=== PATIENT | female | born 1990 | race Two or more races ===

== ENCOUNTER 2022-02-10 08:38 | Inpatient (IN) | payer OTHER ==
[~2022-02-10] VITALS: Ht 165.1 cm; Wt 77.1 kg
[~2022-02-10 08:38] MED LIST: AZIT250T13; PANT20TA2
--- NOTE | 2022-02-10 08:38 | NUR ---
[id number] FRM HOME, C/O DIFFUSE ABD PAIN SINCE 299. PAIN IS 10/10 ON PAIN SCALE. VITALS ARE WITHIN NORMAL LIMITS. NO RESP DISTRESS NOTED.
--- NOTE | 2022-02-10 08:40 | NUR ---
URINE COLLECTED AND SENT
[2022-02-10] MEDS ORDERED: MORPHINE SULFATE INJ 2 MG/ML DISP.SYRIN IV ONE (09:00)
[2022-02-10] MEDS ORDERED: IV NS 0.9% 1,000 ML BAG IV ONE (09:00)
[2022-02-10] MEDS ORDERED: ONDANSETRON HCL/PF 4 MG/2 ML VIAL IVP ONE (09:00)
[2022-02-10 09:18] LABS: BASOPHILS % (AUTO) 0.3 % (0.0-2.0); EOSINOPHILS % (AUTO) 0.2 % (0.0-6.0); HEMATOCRIT 43 % (33-45); HEMOGLOBIN 14.3 g/dL (11.5-14.8); LYMPHOCYTES % (AUTO) 7.3 % (20.0-44.0); MEAN CORPUSCULAR HGB CONC 34 g/dl (31.0-36.0); MEAN CORPUSCULAR VOLUME 87 fL (82-100); MONOCYTES # (AUTO) 0.6 K/uL (0.1-1.30); MONOCYTES % (AUTO) 4.2 % (2.0-12.0); NEUTROPHILS # (AUTO) 11.9 K/uL (1.8-8.9); PLATELET COUNT (AUTO) 207 K/uL (150-450); RED BLOOD CELL COUNT(AUTO) 4.93 MIL/uL (4.0-5.2); WHITE BLOOD COUNT (AUTO) 13.5 K/uL (4.3-11.0)
[2022-02-10] MEDS ORDERED: ONDANSETRON HCL/PF 4 MG/2 ML VIAL ONE ×2 (09:24→13:08)
[2022-02-10] MEDS ORDERED: MORPHINE SULFATE INJ 4 MG/ML DISP.SYRIN ONE ×2 (09:25→13:08)
[2022-02-10 09:29] LABS: CALCIUM, SERUM 9.3 mg/dL (8.5-10.1); CREATININE 0.8 mg/dL (0.6-1.3); POTASSIUM 3.4 mmol/L (3.5-5.1)
[2022-02-10 09:32] LABS: BILIRUBIN,URINE NEGATIVE (NEGATIVE); COLOR,URINE YELLOW (YELLOW); LEUKOCYTE ESTERASE ,URINE TRACE (NEGATIVE); NITRITE, URINE NEGATIVE (NEGATIVE); PH,URINE 7.5 (5.0-8.0); PROTEIN,URINE TRACE mg/dl (NEGATIVE); UGLUCOSE NEGATIVE (NEGATIVE)
[2022-02-10 09:35] LABS: ALBUMIN 3.8 g/dL (3.4-5.0); BILIRUBIN,DIRECT 0.2 mg/dL (0.0-0.2); BILIRUBIN,TOTAL 1.2 mg/dL (0.2-1.0); TOTAL PROTEIN, SERUM 7.6 g/dL (6.4-8.2)
[2022-02-10 09:57] LABS: BACTERIA,URINE 2+ /HPF (None Seen); RBC,URINE NONE SEEN /HPF (0-2); WBC,URINE NONE SEEN /HPF (0-3)
[2022-02-10] MEDS ORDERED: PIPERACILLIN /TAZOBACTAM 3.375 G in IV D5W 50 ML IV ONE (11:00)
[2022-02-10] MEDS ORDERED: LEVO1TAB20 PO (11:09)
--- NOTE | 2022-02-10 11:11 | NUR ---
MOVE SHEET SUBMITTED.
[2022-02-10] MEDS ORDERED: PIPERACILLIN /TAZOBACTAM 3.375 G VIAL IV ONE (11:17)
--- NOTE | 2022-02-10 11:28 | NUR ---
RAPID COVID TEST DONE AND SENT TO LAB
--- NOTE | 2022-02-10 12:00 | NUR ---
LAURI UI [employer] WE[employer] DEVELOPER [phone] PER CM, SHE'LL LOOK FOR BED AVAILABILITY AND MD WILL CALL FOR PEER TO PEER.
--- NOTE | 2022-02-10 12:21 | NUR ---
CHEYANNE HANDY WORKER GAVE AUTHORIZATION TO ADMIT PATIENT
--- NOTE | 2022-02-10 13:13 | NUR ---
GOT BED 307-1
[2022-02-10] MEDS ORDERED: MORPHINE SULFATE INJ 4 MG/ML DISP.SYRIN IV PRN (13:30)
[2022-02-10] MEDS ORDERED: MORPHINE SULFATE INJ 4 MG/ML DISP.SYRIN IV ONE (13:30)
[2022-02-10] MEDS ORDERED: ONDANSETRON HCL/PF - ER 4 MG/2 ML VIAL IV ONE (13:30)
[2022-02-10] MEDS ORDERED: HYDROMORPHONE MDV 0.5 MG in IV D5W 50 ML IV PRN (14:00)
[2022-02-10] MEDS ORDERED: ACETAMINOPHEN 325 MG TABLET PO PRN (14:00)
[2022-02-10] MEDS ORDERED: HYDROMORPHONE 1 MG/1 ML DISP.SYRIN IV PRN (14:00)
[2022-02-10] MEDS ORDERED: HYDROCODONE/APAP 5/325MG TABLET PO PRN (14:00)
[2022-02-10] MEDS ORDERED: ONDANSETRON HCL/PF 4 MG/2 ML VIAL IV PRN (14:00)
[2022-02-10] MEDS ORDERED: POTASSIUM CHLORIDE 10 MEQ/50 ML PREMIXED IVPB FOR PERIPHERAL LINE IV ONE (14:00)
--- NOTE | 2022-02-10 14:25 | NUR ---
REPORT GIVEN TO GURMEET FOR SURY
--- NOTE | 2022-02-10 14:30 | NUR ---
PATIENT ADMITTED FROM ER WITH NICOLE, ADMIT DX IS APPENDICITIS REPORTED BY WANDER LARA. PATIENT AO X 4, IN NO ACUTE DISTRESS OBSERVED, SKIN IS WARM TO TOUCH, KEEP CLEAN/DRY. RESPIRATORY EVEN AND UNLABORED IN ROOM AIR. STARTED ADMINISTERED POTASSIUM VIA IV ON RIGHT AC 20 G IV LINE. CALL LIGHT WITHIN REACH, WILL CONTINUE TO MONITOR.
--- NOTE | 2022-02-10 14:42 | NUR ---
PT TRANSPORTED TO [facility] FLOOR
[2022-02-10] MEDS: Potassium Chloride 20 MEQ in IV D5/ 0.9% NACL 1,000 ML IV SCH ×2 (15:39→23:53)
[2022-02-10] MEDS ORDERED: MORPHINE SULFATE INJ 2 MG/ML DISP.SYRIN IV PRN (16:30)
--- NOTE | 2022-02-10 16:40 | NUR ---
PATIENT REFUSING DILAUDID AND REQUESTING MORPHINE INSTEAD. DR. PETERS ORDERED MORPHINE MG Q 6 H PRN. WILL CONTINUE TO MONITOR.
--- NOTE | 2022-02-10 18:00 | NUR ---
RN CLOSING NOTE PATIENT IN BED RESTING. IN NO ACUTE DISTRESS NOTED. RESPIRATORY EVEN AND UNLABORED ON ROOM AIR. SKIN IS WARM TO TOUCH, KEEP CLEAN/DRY, INTACT IV LINE. KEPT ELEVATED HOB FOR ENSURE AIRWAY AND ASPIRATION PRECAUTION. BED IN LOWEST POSITION AND LOCKED. BED ALARM IS ON AT ALL THE TIMES. PATIENT REQUESTED TO TAKE ORAL CONTRACEPTIVES AND DR. PETERS ACCEPTED. CONTINUE TO NPO FOR PROCEDURE. ALL SAFETY MEASURED IN PLACED. CALL LIGHT WITHIN REACH, WILL ENDORSED TO NEXT SHIFT.
[2022-02-10] MEDS: PIPERACILLIN /TAZOBACTAM 3.375 G in IV D5W 50 ML IV SCH ×2 (18:18→23:34)
[2022-02-10 20:00] VITALS: BP 106/39
--- NOTE | 2022-02-10 20:00 | NUR ---
RECEIVED PATIENT IN BED, ALERT/ORIENTED X4, ROOM AIR, DULL ACHE IN RIGHT SIDE OF ABDOMEN, NPO EXCEPT MEDS, EXPLAINED TO PATIENT BEING NPO AND POSSIBLE SURGERY IN AM. INDEPENDENT WITH ADLS, AT THE BEDSIDE. WILL CONTINUE TO MONITOR.
[2022-02-10 21:25] VITALS: BP 106/39
[2022-02-10] MEDS ORDERED: ZOLPIDEM TARTRATE 5 MG TABLET PO PRN (22:00)
[2022-02-11] VITALS (10 sets, daily range): BP systolic 93–130; BP diastolic 41–85
[2022-02-11 06:14] LABS: BASOPHILS % (AUTO) 0.1 % (0.0-2.0); EOSINOPHILS % (AUTO) 0.2 % (0.0-6.0); HEMATOCRIT 37 % (33-45); HEMOGLOBIN 12.8 g/dL (11.5-14.8); LYMPHOCYTES # (AUTO) 0.5 K/uL (0.8-4.8); MEAN CORPUSCULAR HGB CONC 34 g/dl (31.0-36.0); MEAN CORPUSCULAR VOLUME 87 fL (82-100); MONOCYTES # (AUTO) 0.4 K/uL (0.1-1.30); MONOCYTES % (AUTO) 6.3 % (2.0-12.0); NEUTROPHILS # (AUTO) 4.7 K/uL (1.8-8.9); NEUTROPHILS % (AUTO) 84.4 % (43.0-81.0); PLATELET COUNT (AUTO) 158 K/uL (150-450); RED BLOOD CELL COUNT(AUTO) 4.26 MIL/uL (4.0-5.2); WHITE BLOOD COUNT (AUTO) 5.6 K/uL (4.3-11.0)
[2022-02-11] MEDS: PIPERACILLIN /TAZOBACTAM 3.375 G in IV D5W 50 ML IV SCH ×3 (06:19→17:32)
[2022-02-11 06:29] LABS: CALCIUM, SERUM 8.5 mg/dL (8.5-10.1); CREATININE 0.8 mg/dL (0.6-1.3); MAGNESIUM 1.8 mg/dL (1.8-2.4); POTASSIUM 3.4 mmol/L (3.5-5.1)
--- NOTE | 2022-02-11 07:30 | NUR ---
APPENDICITIS, DULL ACHE TO RIGHT LOWER ABDOMEN, FEVER OF 101.3F, GIVEN TYLENOL AND COOLING MEASURES, TEMP WENT DOWN TO 99.5. NPO EXCEPT MEDS, D5NS + KCL 20 MEQ AT 100 ML/HR, ZOSYN Q6HRS, UA +2 BACTERIA. LAPAROSCOPIC OPEN VS APPENDECTOMY BY DR. JESUS VÁZQUEZ, POST OP LABS TAKEN TODAY, CHECKLIST, CONSENT FOR SURGERY AND BLOOD IN CHART.
--- NOTE | 2022-02-11 07:35 | NUR ---
MS RN OPENING NOTES RECEIVED PATIENT IN BED, AOX4, ANXIOUS ABOUT HER SURGERY WANTED TO SPEAK TO THE SURGEON, REASSURED PATIENT THAT IT IS SCHEDULED AT 1000 AND THE MD WILL DISCUSS THE PROCEDURE TO HER, PATIENT UNDERSTOOD. PATIENT IS AFEBRILE AND DENIED PAIN AT THIS TIME, PATIENT IS ORIENTED TO THE ROOM, NOT IS ANY RESPIRATORY DISTRESS, HAS RAC G#20 WITH D5NS + 20 MEQ KCL RUNNING AT 100 ML/HR. SKIN IS INTACT, SAFETY MEASURES IN PLACE: BED AT LOWEST POSITION, 2 SIDERAILS UP, LOCKED, WITH TRAY TABLE AND CALL LIGHT WITHIN REACH, WILL CONTINUE TO MONITOR DURING MY SHIFT.
[2022-02-11] MEDS ORDERED: FENTANYL PF 250MCG/5ML AMPUL ONE (09:08)
[2022-02-11] MEDS ORDERED: HYDROMORPHONE INJ 2 MG/ML DISP.SYRIN ONE (09:08)
[2022-02-11] MEDS ORDERED: FAMOTIDINE/PF INJ 20 MG/2 ML VIAL IV ONE (09:09)
[2022-02-11] MEDS ORDERED: MIDAZOLAM HCL 2 MG/2ML VIAL ONE (09:09)
[2022-02-11] MEDS ORDERED: ROCURONIUM BROMIDE 50 MG/5 ML ONE (09:10)
[2022-02-11] MEDS ORDERED: ANESTHESIA TRAY IN PYXIS 1 EA TRAY MC ONE (09:19)
[2022-02-11] MEDS ORDERED: BUPIVACAINE MPF 0.5% W/EPI INJ 30 ML VIAL ONE (09:20)
[2022-02-11] MEDS ORDERED: LIDOCAINE HCL/PF 1% 30 ML SDV ONE (09:20)
--- NOTE | 2022-02-11 09:31 | NUR ---
RN NOTES PATIENT HAS BEEN TAKEN TO THE OR BY JANE LI AND JANE COOLEY WITH HER 1200 DOSE OF ZOSYN AT 0928. PREOP CHECKLIST HAS BEEN DONE, VS CHECKED ALL WNL, PT CONFIRMED (-), BLOOD GLUCOSE CHECKED AT 121. PATIENT NOT ON ANY S/SX OF RESPIRATORY DISTRESS.
[2022-02-11] MEDS ORDERED: POTASSIUM CHLORIDE 20 MEQ TAB.PRT.SR PO SCH (10:00)
--- NOTE | 2022-02-11 10:20 | NUR ---
DR PETERS CALLED TO CHECK IF PATIENT UNDERWENT SURGERY, INFORMED JUST TODAY. CONFIRMED.
--- NOTE | 2022-02-11 12:30 | NUR ---
RN NOTES PATIENT JUST GOT BACK FROM OR AT 1210 VIA HER BED WITH JANE COOLEY S/P LAPAROSCOPIC APPENDECTOMY WITH 3 INCISIONS IN THE LOWER ABDOMEN, NOT SHOWING ANY S/SX OF BLEEDING, PATIENT IS AFEBRILE AND VS WNL - BP 121/72 T- 97, RR - 18, WA - 78 0XYGEN SAT 95%, PATIENT REPORTS BLURRY VISION AND NAUSEA AND MENTIONED THAT THIS IS HER USUAL REACTION, PATIENT DENIED OF PAIN AT THIS TIME. AMBULATORY. ZOFRAN 4MG WAS GIVEN. PATIENT REQUESTED FOR JUICE AND CRACKERS, STARTED HER WITH CLEAR LIQUIDS, ABLE TO TOLERATED. HOB ELEVATED, ENCOURAGED EARLY AMBULATION, ICE PACK IF NEEDED, AND PAIN MEDS PRN HAS BEEN INFORMED. DR PETERS IS AWARE THAT PT IS BACK. DR VÁZQUEZ IS OK TO SEND PATIENT HOME IN THE AFTERNOON. WILL CONTINUE TO MONITOR
[2022-02-11] MEDS: Potassium Chloride 20 MEQ in IV D5/ 0.9% NACL 1,000 ML IV SCH (12:36)
[2022-02-11] MEDS: POTASSIUM CHLORIDE 20 MEQ TAB.PRT.SR PO SCH ×2 (12:49→12:50)
[2022-02-11] MEDS ORDERED: OXYC-128 PO (13:37)
[2022-02-11] MEDS ORDERED: CEPH500C2 PO (13:37)
--- NOTE | 2022-02-11 16:01 | NUR ---
RN NOTES RECEIVED A CALL FROM DONALD CASE, PATIENT IS AWARE THAT SHE IS FOR DC TONIGHT.
--- NOTE | 2022-02-11 16:14 | NUR ---
RN NOTES PATIENT ABLE TO TOLERATE CLEAR LIQUIDS DIET WITHOUT ANY NAUSEA, REQUESTED FOR REGULAR FOOD BUT INFORMED TO GO WITH SOFT DIET FIRST TO AVOID SHOCK IN THE SYSTEM, AGREED. UPDATED THE ORDER
--- NOTE | 2022-02-11 18:55 | NUR ---
MS [employer] STORAGE CLERK NOTE PT DISCHARGED TO HOME IN STABLE CONDITION. PT A/O X4, ABLE TO MAKE NEEDS KNOWN. ON RA, TOLERATING WELL WITH SPO2 98%. NO SOB NOTED. NOT IN ANY SIGN OF RESPIRATORY DISTRESS. \S/P LAPAROSCOPIC APPENDECTOMY WITH 3 INCISION SITES, NO BLEEDING OR DRAINAGE. DENIES PAIN OR DISCOMFORT AT THIS TIME. ALL BELONGINGS ACCOUNTED FOR. DISCHARGED INSTRUCTIONS AND HEALTH TEACHINGS GIVEN TO PATIENT, VERBALIZED UNDERSTANDING. IV ACCESS IN RAC G#20 SL REMOVED WITH NO ACTIVE BLEEDING NOTED. DRY PRESSURE DRESSING APPLIED AT SITE. PT LEFT THE UNIT AT 1855 ON FOOT ACCOMPANIED BY . AND CHARGE NURSE AWARE.
== END 2022-02-11 18:55 | disposition home or self-care (01) | DRG 234 ==
LOC: ER 08:41 → TRANSITION 12:24 → MED 13:15 → UNDODISIN 02-12
PROVIDERS: ADMIT Internal Medicine; ATTEND Internal Medicine
PROC: 0DTJ4ZZ Resection of Appendix, Percutaneous Endoscopic Approach (ICD-10-PCS; principal; 2022-02-11)
DX: K35.80 Unspecified acute appendicitis (principal); E66.3 Overweight; K21.9 Gastro-esophageal reflux disease without esophagitis; K38.1 Appendicular concretions; Z87.11 Personal history of peptic ulcer disease; Z98.891 History of uterine scar from previous surgery; Z68.28 Body mass index [BMI] 28.0-28.9, adult; N83.202 Unspecified ovarian cyst, left side
CPT/HCPCS: 36415; 76700-TC; 80048-TC; 80076-TC; 81001; 82962-TC; 83690-TC; 83735-TC; 84702-TC; 84703-TC; 85025-TC; 85610-TC; 86850-TC; 87086-TC; C9803; G0378; J1100; J1170; J1885; J2250; J2270; J2405; J2543; J2704; J2765; J3010; J3480; J3490; J7030; J7042; J7060

== ENCOUNTER 2024-10-10 23:33 | Emergency (ER) | payer OTHER ==
[~2024-10-10] VITALS: Ht 165.1 cm; Wt 63.5 kg
[~2024-10-10 23:33] MED LIST changes: -AZIT250T13; +CEPH500C2 PO; +LEVO1TAB20 PO; +OXYC-128 PO; -PANT20TA2
[2024-10-11 04:41] VITALS: BP 105/60; TEMP 98; O2SAT 100
== END 2024-10-11 04:42 | disposition home or self-care (01) ==
LOC: ER 23:43
DX: R07.89 Other chest pain (principal); M54.2 Cervicalgia; R05.9 Cough, unspecified; V43.62XA Car passenger injured in collision with other type car in traffic accident, initial encounter; Y93.89 Activity, other specified; Y92.488 Other paved roadways as the place of occurrence of the external cause; Y99.8 Other external cause status
CPT/HCPCS: 71045-TC